=== PATIENT | female | born 1975 | race Caucasian/White ===

== ENCOUNTER 2018-05-15 00:42 | Emergency (ER) | payer OTHER ==
[~2018-05-15] VITALS: Ht 177.8 cm; Wt 74.8 kg
[~2018-05-15 00:42] MED LIST: ESTR0.3T3 PO; FLUO10CA26 PO; OMEP40CA PO
--- NOTE | 2018-05-15 02:03 | NUR ---
PT AA/OX 4. COMPLAINING OF LOWER BACK PAIN AND BILATERAL HIP PAIN. PT HAS HX OF CURRENT COMPLAINT. "PAIN GOT SO BAD THAT I FELL." NO S/S SOB. SKIN PINK, WARM, DRY. VSS. NAD. PEDAL PULSES PRESENT. MOVES ALL EXTREMITIES WELL. WILL CONTINUE TO MONITOR
--- NOTE | 2018-05-15 02:22 | NUR ---
XRAY AT BEDSIDE
[2018-05-15 02:53] VITALS: BP 120/72
--- NOTE | 2018-05-15 02:56 | NUR ---
PT RESTING COMFORTABLY. VSS. NAD. STABLE CONDITION. SAFETY MEASURES IN PLACE. CALL LIGHT WITHIN REACH.
== END 2018-05-15 03:12 | disposition home or self-care (01) ==
LOC: ER 00:48
DX: S70.01XA Contusion of right hip, initial encounter (principal); K21.9 Gastro-esophageal reflux disease without esophagitis; F41.9 Anxiety disorder, unspecified; G43.909 Migraine, unspecified, not intractable, without status migrainosus; Z88.0 Allergy status to penicillin; Z88.2 Allergy status to sulfonamides; Z88.6 Allergy status to analgesic agent; Z79.899 Other long term (current) drug therapy; W18.39XA Other fall on same level, initial encounter; Y93.89 Activity, other specified; Y92.89 Other specified places as the place of occurrence of the external cause; Y99.8 Other external cause status
CPT/HCPCS: 73502; A4606; Z7610

== ENCOUNTER 2020-06-24 13:13 | Emergency (ER) | payer OTHER ==
[~2020-06-24] VITALS: Ht 172.7 cm; Wt 83.5 kg
--- NOTE | 2020-06-24 13:20 | NUR ---
[email or web address], from urgent care, c/o hypotension 90/70 on scene,slurred speech started yesterday around 9am, BS 170,1L NS infused by paramedics, to ER bed 7, patient c/o weakness started 06/19 (wednesday). hooked to environmental monitoring technician, bp cuff and pox, VSS. changed to hosp gown, warm blanket provided, patiet aao X 4, breathing even and unlabored. awaiting MD paris
--- NOTE | 2020-06-24 13:34 | NUR ---
DR GIBBONS AT BEDSIDE
[2020-06-24 14:43] LABS: BASOPHILS % (AUTO) 0.7 % (0.0-2.0); EOSINOPHILS % (AUTO) 0.2 % (0.0-6.0); HEMATOCRIT 38 % (33-45); HEMOGLOBIN 12.4 g/dL (11.5-14.8); LYMPHOCYTES # (AUTO) 0.5 /CMM (0.8-4.8); LYMPHOCYTES % (AUTO) 10.9 % (20.0-44.0); MEAN CORPUSCULAR HGB CONC 32 g/dl (31.0-36.0); MEAN CORPUSCULAR VOLUME 87 fL (82-100); MONOCYTES # (AUTO) 0.3 /CMM (0.1-1.30); MONOCYTES % (AUTO) 5.1 % (2.0-12.0); NEUTROPHILS # (AUTO) 4.1 /CMM (1.8-8.9); NEUTROPHILS % (AUTO) 83.1 % (43.0-81.0); PLATELET COUNT (AUTO) 233 /CMM (150-450)
[2020-06-24 14:44] LABS: CALCIUM, SERUM 8.7 mg/dL (8.5-10.1); CARBON DIOXIDE 27 mmol/L (21-32); CHLORIDE 106 mmol/L (98-107); CREATININE 0.9 mg/dL (0.6-1.3); GLUCOSE 118 mg/dL (74-106); POTASSIUM 3.6 mmol/L (3.5-5.1); SODIUM SERUM 141 mmol/L (136-145); UREA NITROGEN, BLOOD 6 mg/dL (7-18)
[2020-06-24 14:49] LABS: ALANINE AMINOTRANSFERASE 22 U/L (12-78); ALBUMIN 3.5 g/dL (3.4-5.0); ALKALINE PHOSPHATASE 39 U/L (46-116); ASPARTATE AMINOTRANSFERASE 20 U/L (15-37); BILIRUBIN,DIRECT 0.1 mg/dL (0.0-0.2); BILIRUBIN,TOTAL 0.4 mg/dL (0.2-1.0); TOTAL PROTEIN, SERUM 6.5 g/dL (6.4-8.2)
[2020-06-24 14:53] LABS: APPEARANCE,URINE Clear (CLEAR); BILIRUBIN,URINE Negative (NEGATIVE); BLOOD, URINE Negative Ery/uL (NEGATIVE); COLOR,URINE Yellow (YELLOW); KETONES,URINE Negative (NEGATIVE); LEUKOCYTE ESTERASE ,URINE Negative (NEGATIVE); NITRITE, URINE Negative (NEGATIVE); PROTEIN,URINE Negative (NEGATIVE); UGLUCOSE Negative (NEGATIVE); UROBILINOGEN,URINE 0.2 EU/dL (0.2)
[2020-06-24 15:17] LABS: MAGNESIUM 1.8 mg/dL (1.8-2.4)
--- NOTE | 2020-06-24 15:31 | NUR ---
ASSISTED TO RESTROOM WITH UNSTABLE GAIT.
--- NOTE | 2020-06-24 15:53 | NUR ---
PROVIDED W FOOD TRAPooja
--- NOTE | 2020-06-24 18:13 | NUR ---
IV removed. Catheter intact and site benign. Pressure and 4x4 applied to site. No bleeding noted.Patient discharged to home in stable condition. Written and verbal after care instructions given. Patient verbalizes understanding of instruction. Patient went to admitting to set for an UBEr.
[2020-06-24 18:14] VITALS: BP 132/81
== END 2020-06-24 18:14 | disposition home or self-care (01) ==
LOC: ER 13:17
DX: R53.1 Weakness (principal); F41.9 Anxiety disorder, unspecified; K21.9 Gastro-esophageal reflux disease without esophagitis; G89.29 Other chronic pain; M25.551 Pain in right hip; G43.909 Migraine, unspecified, not intractable, without status migrainosus; F32.9 Major depressive disorder, single episode, unspecified; Z88.0 Allergy status to penicillin; Z88.2 Allergy status to sulfonamides; Z79.899 Other long term (current) drug therapy
CPT/HCPCS: 36415; 70450-TC; 71045-TC; 80048-TC; 80076-TC; 81000-TC; 82962-TC; 83735-TC; 84484-TC; 84703-TC; 85025-TC; G0480

== ENCOUNTER 2020-06-25 20:05 | Emergency (ER) | payer OTHER ==
[~2020-06-25] VITALS: Ht 177.8 cm; Wt 70.3 kg
--- NOTE | 2020-06-25 21:40 | NUR ---
PATIENT CAME TO ER BED 11 C/O HAVING SLURRED SPEECH, AND NOT BEING HERSELF FOR THE PAST SEVERAL DAYS. PATIENT STATES THAT HER URGENT CARE DOCTOR OF 18 YEARS STATES THAT SHE WAS NOT HERSELF AND THAT SHE SHOULD GET CHECKED OUT. PATIENT STATES, "I FELL ON MY BUTT ABOUT 50 TIMES AT HOME". PATIENT LIVES BY HERSELF. PATIENT IS AAOX4. NO SOB .BREATHING EVENLY AND UNLABORED ON ROOM AIR. CONNECTED TO THE BANKRUPTCY [place].
[2020-06-25] MEDS ORDERED: IV NS 0.9% 1,000 ML BAG IV ONE (22:00)
[2020-06-25 22:24] LABS: BASOPHILS % (AUTO) 0.8 % (0.0-2.0); EOSINOPHILS % (AUTO) 1.7 % (0.0-6.0); HEMATOCRIT 36 % (33-45); HEMOGLOBIN 11.6 g/dL (11.5-14.8); LYMPHOCYTES # (AUTO) 1.4 /CMM (0.8-4.8); LYMPHOCYTES % (AUTO) 36.5 % (20.0-44.0); MEAN CORPUSCULAR HGB CONC 33 g/dl (31.0-36.0); MEAN CORPUSCULAR VOLUME 87 fL (82-100); MONOCYTES # (AUTO) 0.4 /CMM (0.1-1.30); MONOCYTES % (AUTO) 9.5 % (2.0-12.0); NEUTROPHILS % (AUTO) 51.5 % (43.0-81.0); PLATELET COUNT (AUTO) 206 /CMM (150-450); WHITE BLOOD COUNT (AUTO) 3.8 K/uL (4.3-11.0)
[2020-06-25 22:34] LABS: CARBON DIOXIDE 28 mmol/L (21-32); CHLORIDE 105 mmol/L (98-107); GLUCOSE 130 mg/dL (74-106); POTASSIUM 3.4 mmol/L (3.5-5.1); SODIUM SERUM 141 mmol/L (136-145); UREA NITROGEN, BLOOD 7 mg/dL (7-18)
[2020-06-25 22:35] LABS: SERUM AMMONIA 6 umol/L (11-32)
[2020-06-25 22:39] LABS: ALANINE AMINOTRANSFERASE 25 U/L (12-78); ALBUMIN 3.8 g/dL (3.4-5.0); ALCOHOL, BLOOD < 3 mg/dL (0-0); ALKALINE PHOSPHATASE 39 U/L (46-116); ASPARTATE AMINOTRANSFERASE 18 U/L (15-37); BILIRUBIN,DIRECT 0.1 mg/dL (0.0-0.2); BILIRUBIN,TOTAL 0.3 mg/dL (0.2-1.0); TOTAL PROTEIN, SERUM 6.8 g/dL (6.4-8.2)
[2020-06-25 22:40] LABS: ACETAMINOPHEN < 2 ug/ml (10-30)
--- NOTE | 2020-06-25 22:44 | NUR ---
sent to ct via [facility] by radioactive waste disposal dispatcher
--- NOTE | 2020-06-25 22:44 | NUR ---
covid swab sample collected and sent to the lab.
[2020-06-25 22:46] LABS: THYROID STIMULATING HORMONE 9.025 uIU/mL (0.358-3.74)
--- NOTE | 2020-06-25 23:27 | NUR ---
urine collected and sent to the lab.
--- NOTE | 2020-06-25 23:32 | NUR ---
JAKOB OLIVA FROM [facility] WORKING ON TRANSFER TO [facility].
[2020-06-26 00:06] LABS: APPEARANCE,URINE CLEAR (CLEAR); BILIRUBIN,URINE SMALL (NEGATIVE); BLOOD, URINE NEGATIVE Ery/uL (NEGATIVE); COLOR,URINE YELLOW (YELLOW); KETONES,URINE NEGATIVE (NEGATIVE); LEUKOCYTE ESTERASE ,URINE NEGATIVE (NEGATIVE); NITRITE, URINE NEGATIVE (NEGATIVE); PROTEIN,URINE NEGATIVE (NEGATIVE); UGLUCOSE NEGATIVE (NEGATIVE); UROBILINOGEN,URINE 0.2 EU/dL (0.2)
[2020-06-26 00:12] LABS: BACTERIA,URINE None seen /HPF (None Seen); RBC,URINE 0-2 /HPF (0-2); SQUAMOUS EPITHELIAL CELL,UR Few /HPF (None Seen); WBC,URINE 0-2 /HPF (0-3)
--- NOTE | 2020-06-26 00:51 | NUR ---
Pt accepted to [facility] Room [address]. # for report [phone]. Transport ETA [phone]
--- NOTE | 2020-06-26 02:06 | NUR ---
REPORT GIVEN TO QUINTON ROBBINS FOR RAUL. AND GIVEN TO TRANSPORT TEAM FOR TRANFERRING RESPONSIBILTIES.
[2020-06-26 02:14] VITALS: BP 114/78
== END 2020-06-26 02:22 | disposition short-term general hospital (02) ==
LOC: ER 20:16
DX: R40.4 Transient alteration of awareness (principal); R53.83 Other fatigue; Z88.0 Allergy status to penicillin; Z88.2 Allergy status to sulfonamides; Z88.8 Allergy status to other drugs, medicaments and biological substances; G61.0 Guillain-Barre syndrome; K21.9 Gastro-esophageal reflux disease without esophagitis; Z86.69 Personal history of other diseases of the nervous system and sense organs; F41.9 Anxiety disorder, unspecified; F32.9 Major depressive disorder, single episode, unspecified; Z79.899 Other long term (current) drug therapy; G89.29 Other chronic pain; M25.551 Pain in right hip; Z20.828 Contact with and (suspected) exposure to other viral communicable diseases
CPT/HCPCS: 36415; 70450; 71045; 80048; 80076; 80299; 80307 ×2; 80320; 81001; 82140; 83605; 84443; 84484; 84703; 85025; 85730; 87426; 93005; 96360; 99285; C9803; J7030; 81000-TC; G0480